=== PATIENT | male | born 1965 | race Caucasian/White ===

== ENCOUNTER 2021-04-06 11:15 | Emergency (ER) | payer OTHER ==
[2021-04-06 11:31] VITALS: BP 114/85; PULSE 97; RESP 18; TEMP 97.4
--- NOTE | 2021-04-06 12:07 | XR ---
EXAMINATION TYPE: XR abdomen 2V DATE OF EXAM: 04/06/2021 11:52 AM CLINICAL HISTORY: Patient with abdominal pain and distention and constipation. History of her 1 use recently. TECHNIQUE: Single supine KUB image of the abdomen is obtained. COMPARISON: None. FINDINGS: There are mildly dilated loops of small bowel measuring up to 3.3 cm. A few air-fluid levels are seen . This may represent a mild ileus. There is a large amount of gas within the right hemicolon. Stool a nd gas are seen within the rectum. Clinical correlation for constipation. Osseous structures are tracy sly unremarkable. Visualized portion of the lung bases are clear. No abnormal calcifications are seen . IMPRESSION: 1. Mildly dilated loops of small bowel in the upper abdomen measuring up to 3 cm with a few air-fluid levels. These findings may represent early mild ileus. 2. Large amount of stool and gas within the rectum. Clinical correlation for constipation.
[2021-04-06] MEDS ORDERED: NA PHOS,M-B/NA PHOS,DI-BA 133 ML ENEMA RECTAL STA (12:51)
--- NOTE | 2021-04-06 13:04 | ED ---
Abdominal Pain HPI - General Chief Complaint: Abdominal Pain Stated Complaint: Constipation Time Seen by Provider: 04/06/21 12:45 Source: patient, RN notes reviewed Mode of arrival: wheelchair Limitations: no limitations - History of Present Illness Initial Comments: Patient is a 56-year-old male presenting emergency room complaining of abdominal pain and constipation that he notes his last bowel movement was approximately 2 weeks ago. He notes that he is at [facility] for rehab for heroin use. He notes that they're trying to get stool softeners with no relief. He denied any nausea vomiting. He was in no apparent distress or pain while sitting up in bed during the exam interview. He denied receiving any enemas at the facility. He denied chest pendulous breath headache nausea vomiting diarrhea fever fatigue chills - Related Data Home Medications Medication Instructions Recorded Confirmed buPROPion HCL [Wellbutrin XL] 300 mg PO DAILY 04/06/21 04/06/21 buPROPion XL [Wellbutrin Xl] 150 mg PO DAILY 04/06/21 04/06/21 Previous Rx's Medication Instructions Recorded Docusate [Colace] 100 mg PO BID 30 Days #60 capsule 04/06/21 Magnesium Citrate 0 ml PO ONCE 1 Days #296 ml 04/06/21 Allergies Allergy/AdvReac Type Severity Reaction Status Date / Time No Known Allergies Allergy Verified 04/06/21 13:31 Review of Systems ROS Statement: Those systems with pertinent positive or pertinent negative responses have been documented in the HPI. ROS Other: All systems not noted in ROS Statement are negative. Past Medical History Past Medical History: No Reported History History of Any Multi-Drug Resistant Organisms: None Reported Past Surgical History: No Surgical Hx Reported Smoking Status: Current some day smoker Past Alcohol Use History: Occasional Past Drug Use History: Heroin General Exam Limitations: no limitations General appearance: alert, in no apparent distress Head exam: Present: atraumatic, normocephalic, normal inspection Eye exam: Present: normal appearance, PERRL, EOMI. Absent: scleral icterus, conjunctival injection, periorbital swelling Neck exam: Present: normal inspection. Absent: tenderness, meningismus, lymphadenopathy Respiratory exam: Present: normal lung sounds bilaterally. Absent: respiratory distress, wheezes, rales, rhonchi, stridor Cardiovascular Exam: Present: regular rate, normal rhythm, normal heart sounds. Absent: systolic murmur, diastolic murmur, rubs, gallop, clicks GI/Abdominal exam: Present: soft, tenderness (Generalized, mostly in the lower abdomen.), normal bowel sounds. Absent: distended, guarding, rebound, rigid Extremities exam: Present: normal inspection, full ROM, normal capillary refill. Absent: tenderness, pedal edema, joint swelling, calf tenderness Neurological exam: Present: alert, oriented X3, CN II-XII intact Psychiatric exam: Present: normal affect, normal mood Skin exam: Present: warm, dry, intact, normal color. Absent: rash Course Vital Signs 04/06/21 11:28 Temperature 97.4 F L Pulse Rate 97 Respiratory 18 Rate Blood Pressure 114/85 O2 Sat by Pulse 99 Oximetry Medical Decision Making - Medical Decision Making 56-year-old male complaining of constipation 2 weeks. Abdominal x-ray, Fleet enema ordered. Patient reported a moderate-sized bowel movement after the Fleet enema. Case discussed with Dr. Rutherford, patient can discharge back to facility with stool softeners. Disposition Clinical Impression: Constipation Disposition: HOME SELF-CARE Condition: Stable Instructions (If sedation given, give patient instructions): Constipation (ED), Fleet Enema (ED) Additional Instructions: Please return to the Emergency Department if symptoms worsen or any other concerns. Ask facility if they have a constipation protocol. Colace and magnesium citrate sent to pharmacy. Can do Fleet enemas 24 hours after magnesium citrate does not work. Take Colace daily as prescribed. Primary care in the next 2-3 days. Is patient prescribed a controlled substance at d/c from ED?: No Referrals: Nate Atwood DO [Primary Care Provider] - 1-2 days Time of Disposition: 14:07
== END 2021-04-06 14:37 | disposition home or self-care (01) ==
LOC: EC 11:15
DX: K59.00 Constipation, unspecified (principal); R10.84 Generalized abdominal pain; F17.200 Nicotine dependence, unspecified, uncomplicated; F11.90 Opioid use, unspecified, uncomplicated
CPT/HCPCS: 74019; 99283; 99284